=== PATIENT | female | born 1965 | race Caucasian/White ===

== ENCOUNTER 2024-01-15 08:46 | Emergency (ER) | payer SELFPAY ==
[2024-01-15 09:03] VITALS: BP 142/79; PULSE 73; RESP 18; TEMP 36.5; O2SAT 99
--- NOTE | 2024-01-15 09:20 | ED.URI ---
HPI - URI/Sore Throat General Chief Complaint: Upper Respiratory Infection Stated Complaint: Sinus Infection Time Seen by Provider: 01/15/24 09:20 Source: patient, RN notes reviewed and old records reviewed Mode of arrival: ambulatory Limitations: no limitations History of Present Illness HPI Narrative: patient presents with complaints of 3 weeks of sinus pain and drainage, worsening. She has been taking [id number] cold and flu medication with minimal relief. She has a hoarse voice and some associated lack of energy. She denies any fever, chills, sweats reports feeling a fullness in the ears. States facial pain when bending to do tasks. Denies any injury or trauma. No other concerns or complaints today. Related Data Allergies Allergy/AdvReac Type Severity Reaction Status Date / Time No Known Allergies Allergy Verified 01/15/24 09:05 Review of Systems Review of Systems: All systems reviewed & are unremarkable except as noted in HPI and below Constitutional: Constitutional: Reports as per HPI, Reports no additional constitutional complaints, Reports fatigue and Reports headache(s) ENT: Reports system reviewed and no additional complaints, except as documented, Reports otalgia, Reports headache(s), Reports nasal congestion, Reports nasal discharge, Reports sinus pain and Reports sinus pressure Cardiovascular: Cardiovascular: Reports no additional cardiovascular complaints Respiratory: Respiratory: Reports no additional respiratory complaints Gastrointestinal: Gastrointestinal: Reports no additional gastrointestinal complaints PMFSH Comments At the time of my signature, I reviewed and agree with the nursing past medical, surgical, social, and family history. There is no relevant family history pertinent to the patient complaint. Exam Const: General: cooperative, no acute distress, alert and awake Orientation/consciousness: oriented to person, oriented to place and oriented to time HENMT: Head: normal to inspection Ears: TM abnormal with fluid behind the TM bilateral Face/Nose/Sinus: sinus tenderness and Facial tenderness on exam of face and sinuses Mouth: Yes moist mucous membranes Throat: uvula midline, posterior oropharynx abnormal erythema and postnasal drainage Resp: Effort & Inspection: normal respiratory effort and able to speak in complete sentences Auscultation: clear to auscultation bilaterally, no crackles, no rales, no rhonchi and no wheezes Cardio: Palpation: normal PMI Rate: regular rate Rhythm: regular rhythm Heart sounds: S1 normal heart sound present and S2 normal heart sound present Neuro: General: oriented to person, oriented to place and oriented to time Cranial nerves: Yes CN's II-XII intact bilaterally Psych: Appearance: grossly normal Thought process: Normal thought process present Insight: Good insight present (Psych) Judgement: Good judgement present (Psych) Course Course Level of Care: Express Care Visit Vital Signs Vital signs: Vital Signs Temperature 97.7 F 01/15/24 09:03 Pulse Rate 73 01/15/24 09:03 Respiratory Rate 18 01/15/24 09:03 Blood Pressure 142/79 H 01/15/24 09:03 Pulse Oximetry 99 01/15/24 09:03 Oxygen Delivery Room Air 01/15/24 09:03 Temperature 97.7 F 01/15/24 09:03 Pulse Rate 73 01/15/24 09:03 Respiratory Rate 18 01/15/24 09:03 Blood Pressure 142/79 H 01/15/24 09:03 Pulse Oximetry 99 01/15/24 09:03 Oxygen Delivery Room Air 01/15/24 09:03 Reviewed MDM - URI/Sore Throat MDM Narrative Medical decision making narrative: History and exam consistent with sinusitis. Patient is nontoxic appearing. She is advised to follow with primary care provider. Emergency department for new or worse symptoms. Discharge instructions reviewed with patient, as well as provided in writing per nursing staff. The instructions also include specific and strict return/GO TO THE ER as well as f/u information. All questions have
== END 2024-01-15 10:22 | disposition home or self-care (01) ==
PROVIDERS: Emergency Provider Nurse Practitioner Family
DX: J01.90 Acute sinusitis, unspecified (principal); L40.50 Arthropathic psoriasis, unspecified
CPT/HCPCS: 99203; G0463